=== PATIENT | male | born 1935 | race Caucasian/White ===

== ENCOUNTER 2017-04-29 18:09 | Emergency (ER) | payer MEDICARE, OTHER ==
[~2017-04-29] VITALS: Ht 177.8 cm; Wt 78.0 kg
[~2017-04-29 18:09] MED LIST: CARV3.12 OR; EXFO5TAB PO; LISI2.5T55 PO; SIMV5TAB3 OR
[2017-04-29 18:10] VITALS: BP 149/67; PULSE 75; RESP 16; TEMP 98.7; O2SAT 96
--- NOTE | 2017-04-29 18:38 | PD ---
HPI Chief Complaint: Numbness/Tingling Time Seen by Provider: 18:25 Travel History International Travel<30 days: No Contact w/Intl Traveler<30days: No Traveled to known affect area: No History of Present Illness HPI 82-year-old male presents to the emergency department for evaluation of right shoulder achiness, intermittent numbness to the right upper second third and fourth digits of the right hand. He states that when it occurs if he swings his hand up in the air, the numbness will go away. Patient denies any other symptoms. No headache. No fevers or chills. No chest pain or shortness of breath. No abdominal pain. No nausea, vomiting, diarrhea. He denies any upper or lower extremity weakness. No difficulty walking. He reports history of hypertension takes 2 antihypertensives twice daily. He cannot recall the names of them. He denies any other medical problems. Patient appears well on exam. Mild severity. No exacerbating factors. PFSH Past Medical History Arthritis: Yes Cancer: No Chemotherapy: No Diminished Hearing: No Endocrine: No GERD: No Gout: Yes Genitourinary: No Hiatal Hernia: No Hypertension: Yes Immune Disorder: No Neurologic: No Psychiatric: No Reproductive: No Respiratory: No Radiation Therapy: No Sickle Cell Disease: No Ulcer: No Past Surgical History Abdominal Surgery: No Appendectomy: Yes (1939) Cardiac Surgery: No Ear Surgery: No Endocrine Surgery: No Eye Surgery: No Genitourinary Surgery: No Gynecologic Surgery: No Oral Surgery: No Thoracic Surgery: No Social History Alcohol Use: Yes (RARE) Tobacco Use: No Substance Use: No Allergies-Medications (Allergen,Severity, Reaction): Coded Allergies: No Known Allergies (Verified Adverse Reaction, Unknown, 04/29/17) Reported Meds & Prescriptions Reported Meds & Active Scripts Active Reported Lisinopril 2.5 Mg Tab 2.5 Mg PO DAILY Simvastatin 5 Mg Tab 5 Mg OR HS Carvedilol 3.125 Mg Tab 3.125 Mg OR BID Exforge (Amlodipine/Valsartan) 5 Mg/160 Mg Tab 0 PO DAILY UNKNOWN DOSE Review of Systems Except as stated in HPI: all other systems reviewed are Neg Physical Exam Narrative GENERAL: Well-nourished, well-developed elderly male patient, ambulatory. Afebrile. SKIN: Focused skin assessment warm/dry. HEAD: Normocephalic. Atraumatic. EYES: No scleral icterus. No injection or drainage. PERRLA. EOM intact ENT: Mucosa pink and moist. No erythema or exudates. No uvular edema. No uvular , palatal, or tonsillar deviation. Airway patent. Nasal turbinates appear normal without nasal blood, purulent drainage or septal hematoma. Bilateral tympanic membranes are clear without erythema or perforation. NECK: Supple, trachea midline. No JVD or lymphadenopathy. CARDIOVASCULAR: Regular rate and rhythm without murmurs, gallops, or rubs. Right radial pulses 2+. RESPIRATORY: Breath sounds equal bilaterally. No accessory muscle use. Lungs sounds are clear to auscultation GASTROINTESTINAL: Abdomen soft, non-tender, nondistended. MUSCULOSKELETAL: No cyanosis, or edema. Bilateral upper and lower extremity strength 5/5. All extremities are neurovascularly intact. BACK: Nontender without obvious deformity. No CVA tenderness. NEUROLOGICAL: Awake and alert. Cranial nerves II through XII intact. Motor and sensory grossly within normal limits. Five out of 5 muscle strength in all muscle groups. Normal speech. Finger to nose is normal bilaterally. Heel to rasheed is normal bilaterally. Data Data Last Documented VS Vital Signs Date Time Temp Pulse Resp B/P (MAP) Pulse Ox O2 Delivery O2 Flow Rate FiO2 04/29/17 18:10 98.7 75 16 149/67 (94) 96 Orders Orders Ed Discharge Order (04/29/17 18:38) [facility] Medical Decision Making Medical Screen Exam Complete: Yes Emergency Medical Condition: Yes Medical Record Reviewed: Yes Differential Diagnosis Peripheral neuropathy versus carpal tunnel syndrome versus cervical radiculopathy Narrative Course 82-year-old male presents to the emergency department for evaluation of achiness in his right shoulder and intermittent numbness to his right first through fourth fingers. Symptoms are resolved when he thinks his hands up in the air. Neurological exam is unremarkable. Patient appears well. I do not see an emergent cause for his intermittent hand numbness. He has full strength in all extremities. Symptoms are consistent with a possible neuropathy versus carpal tunnel syndrome. I discussed the need to follow his primary care physician for possible EMG testing. He agrees. He will return for any acute worsening of symptoms. I discussed the case with my attending physician, Dr. Stallings, who agrees with plan and disposition. The patient was discharged in stable condition with instructions, including return instructions and follow up instructions. Diagnosis Primary Impression: Paresthesias in right hand Referrals: Primary Care Physician call for appointment Patient Instructions: General Instructions, Paresthesia (ED) Additional Instructions: Follow-up with your primary care physician. Return to the emergency department for any acute worsening of symptoms. Med/Other Pt SpecificInfo: No Change to Meds Disposition: 01 DISCHARGE HOME Condition: Stable Srikanth,Danielle MCDANIEL Apr 29, 2017 18:38
== END 2017-04-29 19:05 | disposition home or self-care (01) ==
LOC: NEPC 18:09
DX: R20.2 Paresthesia of skin (principal); M25.511 Pain in right shoulder; I10 Essential (primary) hypertension; M10.9 Gout, unspecified; Z79.899 Other long term (current) drug therapy
CPT/HCPCS: 99281